=== PATIENT | female | born 2000 | race Caucasian/White ===

== ENCOUNTER 2023-05-20 21:18 | Outpatient (REF) | payer BC, MEDICAID, SELFPAY ==
[2023-05-24 16:09] LABS: Age Gdln ACOG Testing Note (.); IGP, rfx Aptima HPV ASCU Note (.)
== END 2023-05-20 21:19 | disposition home or self-care (01) ==
LOC: LAB 21:18
PROVIDERS: Visit Provider Obstetrics & Gynecology
DX: Z01.419 Encounter for gynecological examination (general) (routine) without abnormal findings (principal)
CPT/HCPCS: G0145